=== PATIENT | female | born 1975 | race Caucasian/White ===

== ENCOUNTER 2019-04-09 18:47 | Emergency (ER) | payer BC ==
[~2019-04-09] VITALS: Ht 154.9 cm; Wt 67.9 kg
[~2019-04-09 18:47] MED LIST: FER325 PO
[2019-04-09 18:59] VITALS: BP 155/99; PULSE 110; RESP 20; Ht 154.9 cm; Wt 67.9 kg
--- NOTE | 2019-04-09 19:10 | ERD ---
ER Documentation Chief Complaint Chief Complaint SENT BY PCP FOR HGB 8.7, HX OF ANEMIA, ASYMPTOMATIC HPI 43-year-old female was referred by primary doctor for some labs done for routine physical this weekend. Review of her labs shows that her hemoglobin is 8.7. She has no complaints of chest pain, shortness of breath, fatigue. She does have heavy menstrual periods although they are regular. Patient has been prescribed iron in the past but she admits she is not compliant with taking it. Patient does not give consent for blood transfusion. ROS All systems reviewed and are negative except as per history of present illness. Medications Home Meds Active Scripts Ferrous Sulfate* (Ferrous Sulfate*) 325 Mg Tabec, 325 MG PO TID, #100 TAB Prov:ALETA ESCOBAR MD 04/09/19 Allergies Allergies: Coded Allergies: No Known Allergy (Unverified , 04/09/19) FmHx Family History: No diabetes, No coronary disease, No other Physical Exam Vitals Vital Signs Date Temp Pulse Resp B/P (MAP) Pulse Ox O2 O2 Flow FiO2 Time Delivery Rate 04/09/19 97.3 110 20 155/99 98 18:59 (117) Physical Exam Const: No acute distress Head: Atraumatic Eyes: Normal Conjunctiva ENT: Normal External Ears, Nose and Mouth. Neck: Full range of motion. No meningismus. Resp: Clear to auscultation bilaterally Cardio: Regular rate and rhythm, no murmurs Abd: Soft, non tender, non distended. Normal bowel sounds Skin: No petechiae or rashes Back: No midline or flank tenderness Ext: No cyanosis, or edema Neur: Awake and alert Psych: Normal Mood and Affect Procedures/MDM Patient presents referred by primary doctor for hemoglobin of 8.7. It is m icrocytic upon review. CMP and additional labs showed no acute abnormalities. Results were discussed with patient. Suspect microcytic anemia likely due to heavy menstrual periods. Patient is otherwise healthy except for hypertension. She has no signs of symptomatic anemia. Patient was counseled the importance of taking her iron she will be prescribed 325 mg of ferrous sulfate 3 times a day and instructions to repeat hemoglobin in 1 month. Patient gives verbal understanding the importance of taking her medications and follow-up. She should otherwise return to the ER for shortness of breath, chest pain, new worsening symptoms. Patient agrees with plan. The patient was stable with no new complaints during the ER course. Clinically, there is no current evidence to suggest meningitis, sepsis, acute abdomen, pneumonia, stroke, acute coronary syndrome, pulmonary embolism, aortic dissection or any other emergent condition appearing to require further evaluation or hospitalization. Patient counseled regarding my diagnostic impression and care plan. Prior to discharge all questions answered. Pt agrees with treatment plan and understands strict return precautions. Pt is instructed to follow up with primary care provider within 24- 48 hours. Precautionary instructions provided including instructions to return to the ER if not improving or for any worsening or changing symptoms or concer ns. Disclaimer: Inadvertent spelling and grammatical errors are likely due to EHR/dictation software use and do not reflect on the overall quality of patient care. Also, please note that the electronic time recorded on this note does not necessarily reflect the actual time of the patient encounter. Departure Diagnosis: Primary Impression: Hypertension Hypertension type: unspecified Qualified Codes: I10 - Essential (primary) hypertension Additional Impression: Anemia Anemia type: unspecified type Qualified Codes: D64.9 - Anemia, unspecified Condition: Stable Patient Instructions: Anemia, Iron Deficiency (Adult), Hypertension, Established Additional Instructions: Hemoglobin is 8.7 according to lab results. Transfusion not considered in healthy people until symptomatic and/or hemoglobin of 7. Take iron as prescribed. Recommend repeat laboratory work approximately 1 month. Recheck otherwise for new worsening symptoms such as chest pain, shortness of breath, new or worsening symptoms. ALETA ESCOBAR MD Apr 09, 2019 19:10
== END 2019-04-09 19:10 | disposition home or self-care (01) ==
LOC: E/R 18:47
DX: D64.9 Anemia, unspecified (principal); I10 Essential (primary) hypertension
CPT/HCPCS: 99282